=== PATIENT | female | born 1990 | race Caucasian/White ===

== ENCOUNTER 2017-02-10 03:06 | Inpatient (IN) ==
[2017-02-04 15:41] LABS: URINE MICRO REVIEW NEEDED? NO; URINE SOURCE VOIDED
[2017-02-04 15:50] LABS: BILIRUBIN URINE NEGATIVE (NEGATIVE); BLOOD URINE NEGATIVE (NEGATIVE); COLOR YELLOW; GLUCOSE URINE NEGATIVE (NEGATIVE); HEMATOCRIT 40.9 % (37.0-47.0); HEMOGLOBIN 14.7 g/dL (12.0-16.0); LEUKOCYTES URINE MODERATE (NEGATIVE); MCH 32.7 PG (27-31); MCHC 35.9 g/dL (33-37); MCV 91.1 FL (81-99); MPV 10.9 FL (7.4-10.4); NITRITE URINE NEGATIVE (NEGATIVE); PH URINE 5.5; PROTEIN URINE TRACE mg/dL (NEGATIVE); RBC 4.49 XMIL (4.2-5.4); SP GRAVITY URINE 1.025; TURBIDITY URINE HAZY (CLEAR); UROBILINOGEN URINE NORMAL (NORMAL)
[2017-02-04 15:53] LABS: UR EPITHELIAL CELLS >10 /HPF (<10); URINE BACTERIA 3+ /HPF; URINE RBC <10 /HPF (<10)
[2017-02-04 16:26] LABS: AGAP 13; ALBUMIN 4.4 g/dL (3.5-5.0); ALKALINE PHOSPHATASE 55 U/L (32-104); BUN 13 mg/dL (8-22); CALCIUM 9.5 mg/dL (8.8-10.2); CHLORIDE 103 mmol/L (98-107); COSMO 282; GOT 11 U/L (10-30); GPT 7 U/L (10-36); POTASSIUM 4.5 mmol/L (3.5-5.1); SODIUM 142 mmol/L (136-145); TCO2 26 mmol/L (25-35)
[~2017-02-10 03:06] MED LIST: KEFZOL 1 GM in NS 50 ML IV SCH
[2017-02-10] MEDS ORDERED: METHYLENE BLUE 0.5% ONE (06:41)
[2017-02-10] MEDS ORDERED: NS 250 ML ONE (06:41)
[2017-02-10] MEDS ORDERED: EXPAREL 1.3% ONE (06:41)
[2017-02-10] MEDS ORDERED: BACITRACIN ONE (06:42)
[2017-02-10] MEDS ORDERED: NS 2,000 ML ONE (06:43)
[2017-02-10] MEDS ORDERED: PEPCID ONE (07:35)
[2017-02-10] MEDS ORDERED: REGLAN ONE (07:35)
[2017-02-10] MEDS ORDERED: TRANSDERM-SCOP ONE (07:35)
[2017-02-10] MEDS ORDERED: VALIUM ONE (07:35)
[2017-02-10] MEDS ORDERED: LR 1,000 ML ONE ×2 (07:36→17:47)
[2017-02-10] MEDS ORDERED: KEFZOL 2 GM/D5W 2 GM/50 ML IVPB ONE (07:36)
[2017-02-10] MEDS ORDERED: LOVENOX SUBQ ONE (07:45)
[2017-02-10 14:02] LABS: URINE MICRO REVIEW NEEDED? NO; URINE SOURCE CATH
[2017-02-10 14:21] LABS: BILIRUBIN URINE NEGATIVE (NEGATIVE); BLOOD URINE NEGATIVE (NEGATIVE); COLOR YELLOW; GLUCOSE URINE NEGATIVE (NEGATIVE); LEUKOCYTES URINE NEGATIVE (NEGATIVE); NITRITE URINE NEGATIVE (NEGATIVE); PH URINE 6.5; PROTEIN URINE NEGATIVE (NEGATIVE); SP GRAVITY URINE 1.019; TURBIDITY URINE CLEAR (CLEAR); UROBILINOGEN URINE NORMAL (NORMAL)
[2017-02-10 14:23] LABS: UR EPITHELIAL CELLS <10 /HPF (<10); URINE BACTERIA NEGATIVE /HPF; URINE RBC <10 /HPF (<10); URINE WBC <10 /HPF (<10)
--- NOTE | 2017-02-10 15:50 | OPERATIVE NOTE ---
PROCEDURE DATE: 02/10/2017 PREOPERATIVE DIAGNOSES: 1. Right breast cancer with biopsy-proven axillary lymph node disease. 2. Known personal BRCA mutation. 3. Strong family history of breast cancer in first degree relatives. POSTOP DIAGNOSES: 1. Right breast cancer with biopsy-proven axillary lymph node disease. 2. Known personal BRCA mutation. 3. Strong family history of breast cancer in first degree relatives. PROCEDURES: 1. Left mastectomy. 2. Right modified radical mastectomy. SURGEON: Richardson Champagne MD. DESK PENS ASSEMBLER: Dr. Terry. Dr. Terry assisted with the entirety of the case for retraction, dissection, and identification. ANESTHESIA: General tracheal. INTRAOPERATIVE FINDINGS: On the right axilla there was one enlarged lymph node which was one that was biopsied no other bulky lymphadenopathy felt. There was what appeared to be lymph nodes near the lateral cutaneous nerve that had to be sacrificed to remove the full axillary contents. COMPLICATIONS: None at time of dictation. ESTIMATED BLOOD LOSS: 100 mL. SPECIMENS REMOVED: Left breast with single stitch superior and double stitch medial. Right breast with single stitch superior, double stitch medial, and axillary contents. DRAINS: Per Dr. Saunders. BRIEF HISTORY: The patient is a 27-year-old female with biopsy- proven right breast cancer and right breast cancer in all lymph node in the right axillary contents. She was also found to have a BRCA mutation and a strong family history of breast cancer. It was felt that given this she would benefit from both a modified radical mastectomy on the right side with her known cancer and a prophylactic left mastectomy given her BRCA mutation and high risk for recurrence on that side. The risks, benefits, and alternatives were discussed. She also had been consented for immediate reconstruction by Dr. Saunders. Please see the details of his operation and his operative note. DESCRIPTION OF PROCEDURE: After informed consent was obtained, patient was brought to the operative theatre, transferred to the operating table, and placed in supine position. General tracheal anesthesia was then performed without complication. A formal time-out was then performed confirming patient, date, procedure. All were agreement. The bilateral chest wall was prepped and draped in a sterile fashion. After the formal time-out, we turned our attention first to the left side. We used the markings on the skin per Dr. Saunders's reconstruction and started our mastectomy. We dissected the breast off the left chest wall with landmarks, medial being the sternum, superior being the clavicle, inferior being the inframammary fold, and laterally being the axilla. We dissected the breast off the chest wall in its entirety and marked it with the sutures as noted above. We then covered this area and turned our attention the right side. In a similar fashion we used the skin markings per Dr. Saunders's area and removed the breast in its entirety with a combination of scalpel and electrocautery. Removed it medially to the sternum, superiorly to the clavicle, inferiorly to the inframammary fold, and laterally to the axilla. Removed its entirety of the chest wall, oriented it as described above, and passed off to pathology. We then turned our attention to the right axillary contents. We dissected the axillary contents up to the axillary vein, identified it, and started doing our dissection inferiorly. There was at least one enlarged lymph node which corresponds to the one that was previously biopsied. We did not find bulky lymphadenopathy. We were able to identify the long thoracic nerve and preserve it. There are some cutaneous nerves that were encountered that were mixed in with the axillary contents that had to be sacrificed to removed the axillary contents. We dissected all the way down the axillary contents down to the latissimus dorsi and removed all of the lymph nodes while preserving the neurovascular structures as best we could identify. We passed this off to pathology. We irrigated out the area copiously, maintained hemostasis with electrocautery, covered this with dressing, and turned the procedure over to Dr. Saunders. Please see his dictation for further results. cc: MD Usama Elizalde MD [facility]
[2017-02-10] MEDS ORDERED: KEFZOL 1 GM/D5W 1 GM/50 ML IVPB ONE (16:36)
[2017-02-10] MEDS ORDERED: MORPHINE PCA ONE (17:46)
[2017-02-10] MEDS ORDERED: FENTANYL ONE (17:58)
[2017-02-10] MEDS ORDERED: VERSED ONE (17:58)
[2017-02-10] MEDS ORDERED: DIPRIVAN 1% ONE (17:58)
[2017-02-10] MEDS ORDERED: SODIUM CHLORIDE 0.9% INJ PRN (18:04)
[2017-02-10] MEDS ORDERED: ZOFRAN IV PRN (18:04)
[2017-02-10] MEDS ORDERED: PHENERGAN IV PRN (18:04)
[2017-02-10] MEDS ORDERED: BENADRYL IV PRN (18:04)
[2017-02-10] MEDS ORDERED: MORPHINE PCA IV PRN (18:04)
[2017-02-10] MEDS ORDERED: NARCAN IV PRN (18:04)
[2017-02-10] MEDS ORDERED: PHENERGAN ONE (18:05)
[2017-02-10] MEDS: MORPHINE ONE ×3 (18:05→18:37)
[2017-02-11] MEDS: KEFZOL 1 GM in NS 50 ML IV SCH ×3 (01:30→17:37)
--- NOTE | 2017-02-11 06:37 | PROGRESS NOTE ---
DATE: 02/11/2017 SUBJECTIVE: Patient doing well. No major issues. She has complained of some soreness. OBJECTIVE: Vital Signs: Patient is currently afebrile. Her vital signs have been stable. Is and Os: [place] drain output is reviewed. All appeared to be serosanguineous. General Examination: No acute distress. Cardiovascular: Regular rate and rhythm. Lungs: Grossly clear. Chest: Chest wall incisions appear to be healing okay. No obvious hematoma. Dressings in place. ASSESSMENT/PLAN: A 27-year-old, female, status post right modified radical mastectomy and left mastectomy. Postoperative state. At this time, the patient seems to be doing well. We will defer her discharge to Dr. Saunders. We will continue routine postoperative care. cc: MD Usama Elizalde MD
[2017-02-11] MEDS: PERIDEX MT SCH ×2 (07:32→08:13)
[2017-02-11] MEDS: LR 1,000 ML IV SCH ×3 (07:34→16:53)
[2017-02-11] MEDS ORDERED: PERICOLACE PO ONE (07:36)
[2017-02-11] MEDS: NORCO-10 PO PRN ×5 (08:20→18:11)
[2017-02-11] MEDS ORDERED: QUELICIN (DOSE) ONE (08:30)
[2017-02-11] MEDS ORDERED: NORCURON ONE (08:30)
[2017-02-11] MEDS ORDERED: XYLOCAINE-MPF 2% ONE (08:30)
[2017-02-11] MEDS ORDERED: ROBINUL ONE (08:30)
[2017-02-11] MEDS ORDERED: LR 3,000 ML ONE (08:30)
[2017-02-11] MEDS ORDERED: NEOSTIGMINE ONE (08:30)
[2017-02-11] MEDS ORDERED: ZOFRAN ONE (08:30)
[2017-02-11] MEDS ORDERED: DECADRON ONE (08:30)
[2017-02-11] MEDS: ZOFRAN IV PRN ×3 (08:32→17:42)
[2017-02-11 16:53] VITALS: BP 107/54
--- NOTE | 2017-02-11 18:45 | DISCHARGE SUMMARY ---
ADMISSION DATE: 02/10/2017 DISCHARGE DATE: 02/11/2017 ADMISSION DIAGNOSIS: Right breast cancer. DISCHARGE DIAGNOSIS: Right breast cancer. HOSPITAL COURSE: This patient was in the hospital via outpatient surgery where preoperative ramirez were made for bilateral mastectomies to be performed by Dr. Champagne who also did a lymph node dissection on the right side. She was then reconstructed with bilateral submuscular tissue expanders. She has done well on the floor. Pain control was adequate. She is not nauseated. She is having a little bit of difficulty voiding but did void 200 mL of urine. All of her prescriptions were written for her and she has them at home already. She understands how to take care of her drains. I will see her in the office tomorrow for dressing change and continued monitoring of her drains. cc: MD Richardson Aguilar MD
--- NOTE | 2017-02-11 18:58 | OPERATIVE NOTE ---
PROCEDURE DATE: 02/10/2017 PROCEDURES: Bilateral breast reconstruction with tissue hoop cutter. SURGEON: Usama Saunders MD. ICD 10 DIAGNOSES: Codes for this case is: 1. (Z85.3) Personal history of breast cancer. 2. (Z86.3) Family history of breast cancer. 3. (CPT 01598) Tissue hoop cutter. 4. (78478-68) Tissue hoop cutter on the other side. INDICATION FOR PROCEDURE: This patient is a 27-year-old, white female with breast cancer on the right side. She has a family history of breast cancer. She is a patient Dr. Champagne. Because of her young age, she desires bilateral mastectomies and she is going to have a full lymph node dissection on the right side. She was seen in the office for informed consent for this procedure for the reconstruction on 02/04/2017. At that point, she understood that she would have bilateral expanders placed to reconstruct her breasts and there would be a period of time where she would not have optimal breast shape. She understands the risks including infection, blood loss, blood clots in legs, heart problems, lung problems, allergic reactions, or blood and serum collections in the operative sites that might require drainage. She understands she cannot have an MRI scan of her body while the implants are in because of the magnets. She knows the exact size and shape cannot be guaranteed. She knows her skin incision will be across the chest. She knows where her scars will be. DESCRIPTION OF PROCEDURE: The patient was brought to the operating room after she was marked in outpatient surgery in the sitting position for the bilateral mastectomies. She went to the operating room and had general anesthesia and was prepped and draped and then I marked the incisions again for Dr. Champagne, who proceeded to do the bilateral mastectomies and right lymph node dissection. When he was completed, the reconstruction began. Submuscular pockets were created on both sides by splitting the pectoralis minor muscle and then dissecting under the pectoralis minor muscle, the serratus muscle and the pectoralis major muscle. When equally dissected muscle pockets were placed on both sides, the pocket was measured and because of her small frame, we knew that she would fit a 400 mL hoop cutter. The pockets were irrigated with bacitracin solution. Drains were placed in the pockets. The expanders were placed in the pockets. Initially filled to 100, but then decreased to 50 mL in each side to decrease tension on the closure. The muscle was closed with 3-0 Polysorb interrupted sutures. The skin pockets were irrigated with bacitracin solution. The skin pockets were drained with a 10 mm flat Reece-Allen drain. The right axillary node dissection was also drained with a 7 mm drain. The skin was temporally tacked closed with silk sutures. She was then closed with 3-0 Polysorb sutures in the fat. Running 3-0 Polysorb deep dermal suture, followed by running 4-0 Biosyn subcuticular stitch. The type of expanders that were used in this patient were 133 mV 13-T expanders. The serial number for the right side was [id number]. The serial number for the left side was [id number]. She tolerated procedure well and was transferred to the recovery room in good condition. cc: Usama Saunders MD
== END 2017-02-11 18:29 | disposition home or self-care (01) ==
LOC: SURHOLD 03:06 → 4N 10:19 → EDSTATUS 11:30
PROVIDERS: ADMIT Surgery Plastic and Reconstructive Surgery; ATTEND Surgery